=== PATIENT | female | born 1995 | race Caucasian/White ===

== ENCOUNTER 2022-02-14 16:29 | Emergency (ER) | payer OTHER ==
[~2022-02-14] VITALS: Ht 160 cm; Wt 45.4 kg
[2022-02-14 16:39] VITALS: BP 100/52
[2022-02-14] MEDS ORDERED: TDAP [DIPH/PERTUSSIS/TET] 0.5 ML VIAL IM ONE ×2 (16:50→17:00)
[2022-02-14] MEDS ORDERED: IBUPROFEN 600 MG TABLET ONE (16:50)
--- NOTE | 2022-02-14 16:59 | NUR ---
SEEN AND EVALUATED BY JAZLYN HENRY. WOUND CARE PROVIDED. D/C TO LAW ENFORCEMENT OFFICERS IN STABLE CONDITION.
[2022-02-14] MEDS ORDERED: IBUPROFEN 600 MG TABLET PO ONE (17:00)
[2022-02-14] MEDS ORDERED: BACI/NEOM/POLY B OINT PKT 1 UDPKT PACKET TP ONE (17:00)
== END 2022-02-14 16:52 | disposition home or self-care (01) ==
LOC: ER 16:40
DX: S20.411A Abrasion of right back wall of thorax, initial encounter (principal); X58.XXXA Exposure to other specified factors, initial encounter; Y93.89 Activity, other specified; Y92.89 Other specified places as the place of occurrence of the external cause; Y99.8 Other external cause status
CPT/HCPCS: 99283; 90471; 90715; A6403